=== PATIENT | male | born 1970 | race Caucasian/White ===

== ENCOUNTER 2016-11-01 15:57 | Emergency (ER) | payer OTHER ==
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
--- NOTE | 2016-11-01 20:09 | ED ORDER SUMMARY ---
..... Patient: JERAMIE ADAMSON OrderSheet [facility] VisitID: [id number] [place] [address] 46y, M Registration Date/Time: 11/01/2016 ORDER SHEET Weight: 115.6 kg (stated) Allergies: No Known Drug Allergy GENERAL ORDERS: Chest 1V Urgent (16:06 11/01/2016 Evens ARAGON) (Ack 16:09 TBergley) (17:09 JSimbeck R.N.) Pelvis 1 or 2V Urgent (16:11/01/2016 Evens ARAGON) (Ack 16:09 TBergley) (17:09 JSimbeck R.N.) CT Head wo Cont Urgent (16:11/01/2016 Evens ARAGON) (Ack 16:09 TBergley) (17:09 JSimbeck R.N.) CT Sinus/Facial Bones wo Cont Urgent (16:11/01/2016 Evens ARAGON) (Ack 16:09 TBergley) (17:09 JSimbeck R.N.) CT Cervical Spine wo Cont Urgent (16:07 11/01/2016 Evens ARAGON) (Ack 16:09 TBergley) (17:09 JSimbeck R.N.) Ribbon Blocker (Continuous) (16:07 11/01/2016 Evens ARAGON) (Ack 16:09 TBergley) (16:33 TBergley) Thoracic Spine 2V Urgent (16:07 11/01/2016 Evens ARAGON) (Ack 16:09 TBergley) (17:09 JSimbeck R.N.) Lumbar Spine 2 or 3V Urgent (16:07 11/01/2016 Evens ARAGON) (Ack 16:09 TBergley) (17:11 JSimbeck R.N.) Cardiac Panel Stat (16:11/01/2016 Evens ARAGON) (Ack 16:09 TBergley) (17:09 JSimbeck R.N.) Pulse oximeter (16:07 11/01/2016 Evens ARAGON) (Ack 16:09 TBergley) (16:33 TBergley) EKG - ER Stat (16:07 11/01/2016 Evens ARAGON) (Ack 16:09 TBergley) (17:16 Gavinoeck R.N.) Oxygen (2 L/min) (NC) (16:07 11/01/2016 Evens ARAGON) (Ack 16:09 TBergley) (16:33 TBergley) CT Thorax w Cont (No) (N/A) Urgent (17:08 11/01/2016 Evens ARAGON) (Ack 17:13 TBergley) (18:26 Krystin R.N.) MEDICATION ORDERS: LET Topical 1 application (NOW) (19:11/01/2016 Evens ARAGON) (19:15 Katey R.N.) IV FLUIDS: IV Saline Lock (16:11/01/2016 Evens ARAGON) (16:23 CARROLimbeck R.N.) IV NS : initial bolus none -, then 500 mL/hr for 2h (NOW); Routine (17:11/01/2016 Evens ARAGON) (17:16 Krystin R.N.) Dilaudid IV 0.5 mg (NOW) (Sched q5m for X2); Routine (prn) (Sched q5m for X2) (17:36 11/01/2016 Evens ARAGON) (17:45 Gavinoeck R.N.) Ativan IV 0.5 mg (NOW) (Sched q5m for X2); Routine (prn) (Sched q5m for X2) (17:36 11/01/2016 Evnes ARAGON) (17:45 Krystin R.N.) Dilaudid IV 0.5 mg (NOW) (Sched q5m for X2); Routine (prn) (17:41 11/01/2016 Evens ARAGON) (18:25 Krystin R.N.) Ativan IV 0.5 mg (NOW) (Sched q5m for X2); Routine (prn) (17:11/01/2016 Evens ARAGON) (18:25 Krystin R.N.) Dilaudid IV 1 mg (NOW) (19:09 11/01/2016 Krystin Conrad.N. verbal order read back to Evens ARAGON) (19:12 Krystin R.N.) Ativan IV 1 mg (NOW) (19:10 11/01/2016 Krystin R.N. verbal order read back to Evens ARAGON) (19:11 Krystin R.N.) Toradol IV 30 mg (NOW) (19:10 11/01/2016 Krystin R.N. verbal order read back to Evens ARAGON) (19:11 Krystin R.N.) ORDER SHEET NOTES: [Electronically signed by Lam Morales R.N. (07:46 11/02/2016)] [Electronically signed by Malik Hoffman MD (23:34 11/04/2016)] [Electronically locked/signed by Lam Morales R.N. (07:46 11/02/2016)]
--- NOTE | 2016-11-01 20:09 | ED ORDER SUMMARY ---
..... Patient: JERAMIE ADAMSON OrderSheet VisitID: [id number] [place] [address] 46y, M Registration Date/Time: 11/01/2016 ORDER SHEET Weight: 115.6 kg (stated) Allergies: No Known Drug Allergy GENERAL ORDERS: Chest 1V Urgent (16:06 11/01/2016 Evens ARAGON) (Ack 16:09 TBergley) (17:09 JSimbeck R.N.) Pelvis 1 or 2V Urgent (16:11/01/2016 Evens ARAGON) (Ack 16:09 TBergley) (17:09 JSimbeck R.N.) CT Head wo Cont Urgent (16:11/01/2016 Evens ARAGON) (Ack 16:09 TBergley) (17:09 JSimbeck R.N.) CT Sinus/Facial Bones wo Cont Urgent (16:11/01/2016 Evens ARAGON) (Ack 16:09 TBergley) (17:09 JSimbeck R.N.) CT Cervical Spine wo Cont Urgent (16:07 11/01/2016 Evens ARAGON) (Ack 16:09 TBergley) (17:09 JSimbeck R.N.) Audiovisual Production Specialist (Continuous) (16:07 11/01/2016 Evens ARAGON) (Ack 16:09 TBergley) (16:33 TBergley) Thoracic Spine 2V Urgent (16:07 11/01/2016 Evens ARAGON) (Ack 16:09 TBergley) (17:09 JSimbeck R.N.) Lumbar Spine 2 or 3V Urgent (16:07 11/01/2016 Evens ARAGON) (Ack 16:09 TBergley) (17:11 JSimbeck R.N.) Cardiac Panel Stat (16:11/01/2016 Evens ARAGON) (Ack 16:09 TBergley) (17:09 JSimbeck R.N.) Pulse oximeter (16:07 11/01/2016 Evens ARAGON) (Ack 16:09 TBergley) (16:33 TBergley) EKG - ER Stat (16:07 11/01/2016 Evens ARAGON) (Ack 16:09 TBergley) (17:16 Gavinoeck R.N.) Oxygen (2 L/min) (NC) (16:07 11/01/2016 Evens ARAGON) (Ack 16:09 TBergley) (16:33 TBergley) CT Thorax w Cont (No) (N/A) Urgent (17:08 11/01/2016 Evens ARAGON) (Ack 17:13 TBergley) (18:26 Krystin R.N.) MEDICATION ORDERS: LET Topical 1 application (NOW) (19:11/01/2016 Evens ARAGON) (19:15 Katey R.N.) IV FLUIDS: IV Saline Lock (16:11/01/2016 Evens ARAGON) (16:23 CARROLimbeck R.N.) IV NS : initial bolus none -, then 500 mL/hr for 2h (NOW); Routine (17:11/01/2016 Evens ARAGON) (17:16 Krystin R.N.) Dilaudid IV 0.5 mg (NOW) (Sched q5m for X2); Routine (prn) (Sched q5m for X2) (17:36 11/01/2016 Evens ARAGON) (17:45 Gavinoeck R.N.) Ativan IV 0.5 mg (NOW) (Sched q5m for X2); Routine (prn) (Sched q5m for X2) (17:36 11/01/2016 Evens ARAGON) (17:45 Krystin R.N.) Dilaudid IV 0.5 mg (NOW) (Sched q5m for X2); Routine (prn) (17:41 11/01/2016 Evens ARAGON) (18:25 Krystin R.N.) Ativan IV 0.5 mg (NOW) (Sched q5m for X2); Routine (prn) (17:11/01/2016 Evens ARAGON) (18:25 Krystin R.N.) Dilaudid IV 1 mg (NOW) (19:09 11/01/2016 Krystin Conrad.N. verbal order read back to Evens ARAGON) (19:12 Krystin R.N.) Ativan IV 1 mg (NOW) (19:10 11/01/2016 Krystin R.N. verbal order read back to Evens ARAGON) (19:11 Krystin R.N.) Toradol IV 30 mg (NOW) (19:10 11/01/2016 Krystin R.N. verbal order read back to Evens ARAGON) (19:11 Krystin R.N.) ORDER SHEET NOTES: [Electronically signed by Lam Morales R.N. (07:46 11/02/2016)] [Electronically signed by Malik Hoffman MD (23:34 11/04/2016)] [Electronically locked/signed by Lam Morales R.N. (07:46 11/02/2016)]
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
--- NOTE | 2016-11-04 23:34 | ED MAR SUMMARY ---
..... Medication Administration Record [facility] [address] [place] [address] Patient: JERAMIE ADAMSON Visit ID: [id number] 46y, M Weight: 115.6 kg Height/Length: 72 in BMI: 34.6 ALLERGIES: No Known Drug Allergy Start 17:15 11/01/2016 Yordy Crump R.N., Stop 20:15 11/01/2016 Lam Morales R.N. Medication Administered: IV NS (SALINE), Dose: IV Fluids over 2 hour(s), Rate: 500 mL/hr, Dispensed: 1000 mL bag, Site: #1 left forearm. Medication Ordered: IV NS : initial bolus none -, then 500 mL/hr for 2h (NOW); Routine. Given 17:42 11/01/2016 Yordy Crump R.N. Medication Administered: ATIVAN [IVP] (LORAZEPAM), Dose: 0.5 mg IVP over 1 minute(s), Site: #1 left forearm. Medication Ordered: Ativan IV 0.5 mg (NOW) (Sched q5m for X2); Routine (prn) 1 of 2. Given 17:43 11/01/2016 Yordy Crump R.N. Medication Administered: DILAUDID [IVP] (HYDROMORPHONE HCL PF), Dose: 0.5 mg IVP over 1 minute(s), Site: #1 left forearm. Medication Ordered: Dilaudid IV 0.5 mg (NOW) (Sched q5m for X2); Routine (prn) 1 of 2. Given 18:20 11/01/2016 Yordy Crump R.N. Medication Administered: ATIVAN [IVP] (LORAZEPAM), Dose: 0.5 mg IVP over 1 minute(s), Site: #1 left forearm. Medication Ordered: Ativan IV 0.5 mg (NOW) (Sched q5m for X2); Routine (prn) 2 of 2. Given 18:22 11/01/2016 Yordy Crump R.N. Medication Administered: DILAUDID [IVP] (HYDROMORPHONE HCL PF), Dose: 0.5 mg IVP over 1 minute(s), Site: #1 left forearm. Medication Ordered: Dilaudid IV 0.5 mg (NOW) (Sched q5m for X2); Routine (prn) 2 of 2. Given 18:58 11/01/2016 Yordy Crump R.N. Medication Administered: ATIVAN [IVP] (LORAZEPAM), Dose: 1 mg IVP over 1 minute(s), Site: #1 left forearm. Medication Ordered: Ativan IV 1 mg (NOW). Given 19:00 11/01/2016 Yordy Crump R.N. Medication Administered: TORADOL [IVP], Dose: 30 mg IVP over 1 minute(s), Site: #1 left forearm. Medication Ordered: Toradol IV 30 mg (NOW). Given 19:02 11/01/2016 Yordy Crump R.N. Medication Administered: DILAUDID [IVP] (HYDROMORPHONE HCL PF), Dose: 1 mg IVP over 1 minute(s), Site: #1 left forearm. Medication Ordered: Dilaudid IV 1 mg (NOW). Given 19:10 11/01/2016 Lam Morales R.N. Medication Administered: LET [TOPICAL], Dose: 1 application Topical Solution Topical. Medication Ordered: LET Topical 1 application (NOW).
--- NOTE | 2016-11-04 23:34 | ED MAR SUMMARY ---
..... Medication Administration Record [facility] [address] [place] [address] Patient: JERAMIE ADAMSON Visit ID: [id number] 46y, M Weight: 115.6 kg Height/Length: 72 in BMI: 34.6 ALLERGIES: No Known Drug Allergy Start 17:15 11/01/2016 Yordy Crump R.N., Stop 20:15 11/01/2016 Lam Morales R.N. Medication Administered: IV NS (SALINE), Dose: IV Fluids over 2 hour(s), Rate: 500 mL/hr, Dispensed: 1000 mL bag, Site: #1 left forearm. Medication Ordered: IV NS : initial bolus none -, then 500 mL/hr for 2h (NOW); Routine. Given 17:42 11/01/2016 Yordy Crump R.N. Medication Administered: ATIVAN [IVP] (LORAZEPAM), Dose: 0.5 mg IVP over 1 minute(s), Site: #1 left forearm. Medication Ordered: Ativan IV 0.5 mg (NOW) (Sched q5m for X2); Routine (prn) 1 of 2. Given 17:43 11/01/2016 Yordy Crump R.N. Medication Administered: DILAUDID [IVP] (HYDROMORPHONE HCL PF), Dose: 0.5 mg IVP over 1 minute(s), Site: #1 left forearm. Medication Ordered: Dilaudid IV 0.5 mg (NOW) (Sched q5m for X2); Routine (prn) 1 of 2. Given 18:20 11/01/2016 Yordy Crump R.N. Medication Administered: ATIVAN [IVP] (LORAZEPAM), Dose: 0.5 mg IVP over 1 minute(s), Site: #1 left forearm. Medication Ordered: Ativan IV 0.5 mg (NOW) (Sched q5m for X2); Routine (prn) 2 of 2. Given 18:22 11/01/2016 Yordy Crump R.N. Medication Administered: DILAUDID [IVP] (HYDROMORPHONE HCL PF), Dose: 0.5 mg IVP over 1 minute(s), Site: #1 left forearm. Medication Ordered: Dilaudid IV 0.5 mg (NOW) (Sched q5m for X2); Routine (prn) 2 of 2. Given 18:58 11/01/2016 Yordy Crump R.N. Medication Administered: ATIVAN [IVP] (LORAZEPAM), Dose: 1 mg IVP over 1 minute(s), Site: #1 left forearm. Medication Ordered: Ativan IV 1 mg (NOW). Given 19:00 11/01/2016 Yordy Crump R.N. Medication Administered: TORADOL [IVP], Dose: 30 mg IVP over 1 minute(s), Site: #1 left forearm. Medication Ordered: Toradol IV 30 mg (NOW). Given 19:02 11/01/2016 Yordy Crump R.N. Medication Administered: DILAUDID [IVP] (HYDROMORPHONE HCL PF), Dose: 1 mg IVP over 1 minute(s), Site: #1 left forearm. Medication Ordered: Dilaudid IV 1 mg (NOW). Given 19:10 11/01/2016 Lam Morales R.N. Medication Administered: LET [TOPICAL], Dose: 1 application Topical Solution Topical. Medication Ordered: LET Topical 1 application (NOW).
--- NOTE | 2016-11-04 23:34 | ED MED RECONCILIATION SUMMARY ---
Patient: JERAMIE ADAMSON Medication Reconciliation Report [facility] VisitID: [id number] [address] [place] [address] 46y, M Registration Date/Time: 11/01/2016 Weight: 115.6 kg Height/Length: 72 in. BMI: 34.6 ALLERGIES: No Known Drug Allergy The patient's Home Medications are listed below: NONE. The source(s) of the original Home Medication information: Not obtained. The following Medications were given to the patient in the Emergency Department: IV NS IV Fluids bolus 0, then 500 mL/hr, administered: 11/01/2016 5:15:00 PM Ativan [IVP] IVP 0.5 mg, administered: 11/01/2016 5:42:00 PM Dilaudid [IVP] IVP 0.5 mg, administered: 11/01/2016 5:43:00 PM Ativan [IVP] IVP 0.5 mg, administered: 11/01/2016 6:20:00 PM Dilaudid [IVP] IVP 0.5 mg, administered: 11/01/2016 6:22:00 PM Ativan [IVP] IVP 1 mg, administered: 11/01/2016 6:58:00 PM Toradol [IVP] IVP 30 mg, administered: 11/01/2016 7:00:00 PM Dilaudid [IVP] IVP 1 mg, administered: 11/01/2016 7:02:00 PM LET [Topical] Topical 1 application, administered: 11/01/2016 7:10:00 PM The following Medications were prescribed to the patient: Zofran (orally disintegrating tablets) 4 mg: take 1 orally every 6 hours as needed for nausea. Dispense ten (10). No refill. Substitution is permissible. -- Malik Hoffman MD Soma 350 mg: Take 1 orally every 6 hours as needed for muscle spasm. Dispense twenty (20). No refills. Substitution is permissible. -- Malik Hoffman MD Oxycodone/APAP 5 mg/325 mg: take 1-2 tablets orally every 4 hours as needed for pain. Dispense thirty (30). No refill. -- Malik Hoffman MD
--- NOTE | 2016-11-04 23:34 | ED MED RECONCILIATION SUMMARY ---
Patient: JERAMIE ADAMSON Medication Reconciliation Report [facility] VisitID: [id number] [address] [place] [address] 46y, M Registration Date/Time: 11/01/2016 Weight: 115.6 kg Height/Length: 72 in. BMI: 34.6 ALLERGIES: No Known Drug Allergy The patient's Home Medications are listed below: NONE. The source(s) of the original Home Medication information: Not obtained. The following Medications were given to the patient in the Emergency Department: IV NS IV Fluids bolus 0, then 500 mL/hr, administered: 11/01/2016 5:15:00 PM Ativan [IVP] IVP 0.5 mg, administered: 11/01/2016 5:42:00 PM Dilaudid [IVP] IVP 0.5 mg, administered: 11/01/2016 5:43:00 PM Ativan [IVP] IVP 0.5 mg, administered: 11/01/2016 6:20:00 PM Dilaudid [IVP] IVP 0.5 mg, administered: 11/01/2016 6:22:00 PM Ativan [IVP] IVP 1 mg, administered: 11/01/2016 6:58:00 PM Toradol [IVP] IVP 30 mg, administered: 11/01/2016 7:00:00 PM Dilaudid [IVP] IVP 1 mg, administered: 11/01/2016 7:02:00 PM LET [Topical] Topical 1 application, administered: 11/01/2016 7:10:00 PM The following Medications were prescribed to the patient: Zofran (orally disintegrating tablets) 4 mg: take 1 orally every 6 hours as needed for nausea. Dispense ten (10). No refill. Substitution is permissible. -- Malik Hoffman MD Soma 350 mg: Take 1 orally every 6 hours as needed for muscle spasm. Dispense twenty (20). No refills. Substitution is permissible. -- Malik Hoffman MD Oxycodone/APAP 5 mg/325 mg: take 1-2 tablets orally every 4 hours as needed for pain. Dispense thirty (30). No refill. -- Malik Hoffman MD
== END 2016-11-01 20:30 | disposition home or self-care (01) ==
LOC: ED SRH 15:57
DX: S06.0X9A Concussion with loss of consciousness of unspecified duration, initial encounter (principal); S12.600A Unspecified displaced fracture of seventh cervical vertebra, initial encounter for closed fracture; S16.1XXA Strain of muscle, fascia and tendon at neck level, initial encounter; S29.012A Strain of muscle and tendon of back wall of thorax, initial encounter; S01.112A Laceration without foreign body of left eyelid and periocular area, initial encounter; V43.52XA Car driver injured in collision with other type car in traffic accident, initial encounter; Y92.410 Unspecified street and highway as the place of occurrence of the external cause; Y99.9 Unspecified external cause status; Y93.I9 Activity, other involving external motion
CPT/HCPCS: 82708; 90100; 90616; 90617; 92610; 92720; 95059